=== PATIENT | female | born 1955 | race Caucasian/White ===

== ENCOUNTER 2017-10-08 16:19 | Emergency (ER) | payer OTHER ==
[~2017-10-08] VITALS: Ht 165.1 cm; Wt 63.0 kg
[~2017-10-08 16:19] MED LIST: ADVIL200 MG PO; ALEVE220 MG PO; AMBIEN 10MG10 MG PO; AMBIEN10 M1 PO; AMRIX15 MG PO; ASPIRIN EC81 M1 PO; ATIVAN 2 MG. TAB2 MG PO; ATIVAN0.5 MG PO; ATIVAN1 MG PO; ATIVAN2 MG PO; ATORVASTATIN CA20 M1 PO; ATORVASTATIN CA20 MG PO; BENZTROPINE MESY1 M1 PO; BUSPAR5 MG PO; CALCIUM 500 +1 EAC5 PO; CALTRATE 600+D1 TAB PO; CAMBIA50 MG PO; CENTRUM SILVER1 TA1 PO; CENTRUM1 TAB PO; CIPRO500 M1 PO; CYCLOBENZAPRINE10 M1 PO; DESIPRAMINE HCL25 MG PO; DEXAMETHASONE4 MG; DIVALPROEX SOD500 MG PO; ESOMEPRAZOLE MA40 MG PO; FAMOTIDINE40 M1 PO; FIORICET 325 MG1 TAB PO; FLEXERIL10 MG PO; GABAPENTIN600 M1 PO; GEODON 40MG CAP40 MG PO; GEODON20 MG PO; GRALISE600 M1 PO; HALDOL 5MG TABLE5 MG; HALOPERIDOL10 M1 PO; HALOPERIDOL5 MG PO; HYDROXYZINE PAM50 M1 PO; HYDROXYZINE PAM50 MG PO; IBU600 MG PO; IMITREX50 MG PO; LEVOTHYROXIN0.025 M1 PO; LEVOTHYROXINE25 MCG PO; LEVOTHYROXINE50 MCG PO; LOPERAMIDE HCL2 MG PO; LOPERAMIDE2 MG PO; LORAZEPAM2 M1 PO; LORZONE750 MG PO; MOVANTIK12.5 M1; MULTI-DAY VITA1 EACH PO; NADOLOL20 MG; NEURONTIN800 M1 PO; PEPTO-BISMOL262 MG PO; PERCOCET 5-3251 EACH PO; PERCOCET 7.5-31 EACH PO; PREDNISONE10 MG PO; PROCHLORPERAZINE5 MG PO; PROPRANOLOL HCL60 MG PO; QUETIAPINE FUM200 MG PO; QUETIAPINE FUM300 MG PO; RANITIDINE HCL150 MG PO; REGLAN10 MG PO; SEROQUEL400 MG PO; TRAMADOL50 MG PO; TREXIMET 500 MG1 TAB PO; ULTRAM(MONOGRAP50 MG PO; VICODIN 300 MG-1 TAB PO; VICODIN5-300 PO; VISTARIL50 MG PO; ZOLPIDEM TARTRA10 M1 PO; ZORVOLEX35 MG PO
[2017-10-08 16:45] LABS: ABSOLUTE BASOPHIL COUNT 0 /CUMM (0.0-0.2); ABSOLUTE EOSINOPHIL COUNT 0.1 /CUMM (0.0-0.7); ABSOLUTE GRANULOCYTE CT 8.5 /CUMM (1.4-6.5); ABSOLUTE LYMPH COUNT 2.7 /CUMM (1.2-3.4); ABSOLUTE MONOCYTE COUNT 0.5 /CUMM (0.10-0.60); BASOPHIL % 0 % (0.0-2.0); EOSINOPHIL % 0.7 % (0-5); GRANULOCYTE % 72.1 % (42.2-75.2); HEMATOCRIT 43.8 % (37-47); MEAN CORPUSCULAR HGB CONC 32.6 G/DL (33.0-37.0); MEAN CORPUSCULAR VOLUME 89.1 FL (81.0-99.0); MEAN PLATELET VOLUME 8.4 FL (7.4-10.4); PLATELET COUNT 436 /CUMM (130-400); RBC DISTRIBUTION WIDTH 13.9 % (11.5-14.5); RED BLOOD CELL CT 4.92 /CUMM (4.20-5.40); WHITE BLOOD CELL COUNT 11.7 /CUMM (4.8-10.8)
--- NOTE | 2017-10-08 19:01 | ED GENERAL ADULT ---
History of Present Illness General Chief Complaint: Chest Pain Stated Complaint: I HAVE GERD AND CP X 8 DAYS Source: patient, family, old records Exam Limitations: no limitations Vital Signs & Intake/Output Vital Signs & Intake/Output Vital Signs Date Time Temp Pulse Resp B/P B/P Pulse O2 O2 Flow FiO2 Mean Ox Delivery Rate 10/08 2125 98.0 78 20 128/78 98 Room Air 10/08 1935 98 Room Air 10/08 1934 97.6 81 20 160/77 98 Room Air 10/08 1637 99.5 94 18 114/74 97 Room Air Room Air Allergies Coded Allergies: Influenza Virus Vaccines (SICK, FEVER, FLU SYMPTOMS 03/15/17) Iodinated Contrast- Oral and IV Dye (IODINATED CONTRAST MEDIA - IV DYE) (UNKNOWN 03/15/17) latex (HIVES 03/15/17) metronidazole (UNKNOWN 03/15/17) penicillin V (UNKNOWN 03/15/17) pneumococcal vaccine (UNKNOWN 03/15/17) pollen extracts (UNKNOWN 03/15/17) ragweed pollen (UNKNOWN 03/15/17) risperidone (From RISPERDAL) (UNKNOWN 03/15/17) venom-honey bee (BEE VENOM (HONEY BEE)) (UNKNOWN 03/15/17) Reconcile Medications Aspirin (Ecotrin*) 81 MG TABLET.DR 1 TAB PO DAILY HEART/BLOOD (Reported) Atorvastatin Calcium 20 MG TABLET 1 TAB PO DAILY CHOLESTEROL (Reported) Benztropine Mesylate 1 MG TABLET 1 TAB PO BID MENTAL HEALTH (Reported) Calcium Carbonate/Vitamin D3 (Calcium 500 + D Tablet) (Unknown Strength) TABLET (Unknown Dose) PO DAILY SUPPLEMENT (Reported) Cyclobenzaprine HCl 10 MG TABLET 1 TAB PO BID MUSCLE RELAXER (Reported) Haloperidol 5 MG TABLET 1 TAB PO QAM MENTAL HEALTH (Reported) Haloperidol 10 MG TABLET 1 TAB PO QPM MENTAL HEALTH (Reported) Hydroxyzine Pamoate 50 MG CAPSULE 1 CAP PO DAILY ANXIETY (Reported) Levothyroxine Sodium 25 MCG TABLET 1 TAB PO DAILY THYROID (Reported) Lorazepam 2 MG TABLET 1 TAB PO DAILY PRN ANXIETY (Reported) Multivitamin (Multi-Day Vitamins) 1 EACH TABLET 1 TAB PO DAILY SUPPLEMENT ( Reported) Naloxegol Oxalate (Movantik) (Unknown Strength) TABLET (Unknown Dose) UNKNOWN (Reported) Oxycodone HCl/Acetaminophen (Percocet 7.5-325 MG Tablet) 7.5 MG-325 MG TABLET 1 TAB PO BID PRN PAIN (Reported) Ranitidine (Ranitidine HCl) 150 MG TABLET 1 TAB PO BID GI (Reported) Zolpidem Tartrate 10 MG TABLET 1 TAB PO QPM SLEEP (Reported) Triage Note: TRIAGE: 61 Y/O FEMALE PRESENTS C/O 05/23 INTERMITTENT CHEST PAIN X 8 DAYS. HISTORY OF GERD. EKG IN PROGRESS. Triage Nurses Notes Reviewed? yes Onset: Gradual Duration: day(s): (8) Timing: recent history Injury Environment: home Severity: moderate Severity Numbers: 6 No Modifying Factors: none Associated Symptoms: chest pain HPI: Patient is a 61-year-old female presenting to the emergency department complaining of centralized chest pain off and on for the past 8 days. Nothing seems to make it better. Denies any associated shortness of breath nausea vomiting fevers or chills. No palpitations. She has been taking her daily pain medications without relief. She does report that pressing on her chest seems to get worse. Denies any recent coughing or congestion. No abdominal pain. She has an appointment with her sales project coordinator next week. Denies any lower extremities swelling. No hemoptysis. (Jessica Walsh) Past History Travel History Traveled to [place] past 21 day No Medical History Any Pertinent Medical History? 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 No (Jessica Walsh) Review of Systems Review of Systems Constitutional: Reports: no symptoms. Comments Review of systems: See HPI, All other systems negative. Constitutional, no chills fever or weight loss HEENT: No visual changes no sore throat no congestion Cardiovascular: No palpitation , orthopnea or ankle swelling Skin, no jaundice no rashes Respiratory: No dyspnea cough sputum or hemoptysis GI: No nausea no vomiting Muscle skeletal: no back pain, no neck pain, Neurologic: No numbness no confusion Psych: No stress anxiety or depression,. Heme/endocrine: No bruising no bleeding no polyuria or polydipsia Immunology: No splenectomy or history of AIDS (Jessica Walsh) Physical Exam Physical Exam General Appearance: well developed/nourished, no apparent distress, alert, awake , comfortable Comments: Well-developed well-nourished person in no acute distress HEENT: Pupils equally round and reactive to light and accommodation. Nose is atraumatic. External auditory canal and Tympanic membranes clear. Pharynx normal. No swelling or edema. Neck: Normal inspection Back: Nontender, no CVA tenderness. Full range of motion Cardiovascular: Regular rate and rhythms no murmurs rubs or gallops, normal JVP Respiratory: Chest is mildly tender to palpation over the central aspect chest.. No respiratory distress.breath sounds clear to auscultation bilaterally Abdomen: Soft, nontender nondistended, no appreciable organomegaly. Normal bowel sounds. No ascites, no rebound or guarding. Extremity: No edema, no calf tenderness to palpation, normal and equal pulses. Neuro: Alert oriented x3 Skin: No appreciable rash on exposed skin, skin is warm and dry. Psych: Mood and affect is normal, memory and judgment is normal. Core Measures ACS in differential dx? Yes CVA/TIA Diagnosis: No Sepsis Present: No Sepsis Focused Exam Completed? No (Jessica Walsh) Progress Differential Diagnoses I considered the following diagnoses in my evaluation of the patient: A few coronary syndrome, muscle strain, contusion, pleurisy, atypical chest pain, costochondritis Plan of Care: Orders Procedure Date/time Status TROPONIN LEVEL 10/08 2029 Complete EKG 10/08 2029 Active Telemetry/Fruit Shipper 10/08 191 Active TROPONIN LEVEL 10/08 162 Complete MAGNESIUM 10/08 162 Complete COMPREHENSIVE METABOLIC PANEL 10/08 162 Complete CHOLESTEROL 10/08 162 Complete CBC WITHOUT DIFFERENTIAL 10/08 1625 Complete EKG 10/08 162 Active Laboratory Tests 10/08/172024: Troponin I < 0.01 10/08/17 1636: Anion Gap 14, Estimated GFR > 60, BUN/Creatinine Ratio 11.7, Glucose 164 H, Calcium 9.9, Magnesium 1.9, Total Bilirubin 0.5, AST 26, ALT 40, Alkaline Phosphatase 124, Troponin I < 0.01, Total Protein 7.1, Albumin 4.4, Globulin 2.7 , Albumin/Globulin Ratio 1.6, Cholesterol 143, CBC w Diff NO MAN DIFF REQ, RBC 4.92, MCV 89.1, MCH 29.0, MCHC 32.6 L, RDW 13.9, MPV 8.4, Gran % 72.1, Lymphocytes % 23.3, Monocytes % 3.9, Eosinophils % 0.7, Basophils % 0, Absolute Granulocytes 8.5 H, Absolute Lymphocytes 2.7, Absolute Monocytes 0.5, Absolute Eosinophils 0.1, Absolute Basophils 0 Spoke with patient's sales project coordinator. dr devlin. Pain has been constant for 8 days now. First troponin and EKG are unchanged from previous. Patient had relief with morphine. Recommending we do repeat PG troponin 4 hours from the first. If negative patient will be cleared to be discharged home and follow up outpatient. Patient informed of negative second troponin unchanged EKG. Patient will keep appointment with Dr. Devlin. Patient nontoxic. d/w dr. franco and he agrees with plan. Diagnostic Imaging: Viewed by Me: Radiology Read. Discussed w/RAD: Radiology Read. Radiology Impression: PATIENT: JORGE JIMENEZ PRESENT AGE: 61 PATIENT ACCOUNT NO: [id number] : 53 LOCATION: [facility] ORDERING PHYSICIAN: Jessica PASCUAL SERVICE DATE: 10/08/17 EXAM TYPE: RAD - XRY-CHEST XRAY, TWO VIEWS EXAMINATION: XR CHEST CLINICAL INFORMATION: Chest pain COMPARISON: 09/02/2016 TECHNIQUE: 2 views of the chest were obtained. FINDINGS: The cardiomediastinal contours are stable. The cardiac size is normal. There is moderate biapical pleural parenchymal thickening, unchanged. The lungs are clear without consolidation or effusion. The visualized osseous structures appear intact. IMPRESSION: No acute process. DICTATED BY: Ashlee Parks MD DATE/ TIME DICTATED:10/08/171940 OTR TRUCK DRIVER:MARISELA DATE/TIME TRANSCRIBED: 10/08/171940 CONFIDENTIAL, DO NOT COPY WITHOUT APPROPRIATE AUTHORIZATION. < Electronically signed in Other Vendor System> SIGNED BY: Ashlee Parks MD 1944 Initial ED EKG: NSR Prior EKG: unchanged Repeat EKG: unchanged (Jessica Walsh) Departure Departure Time of Disposition: 2117 Disposition: HOME OR SELF CARE Condition: Stable Clinical Impression Primary Impression: Chest pain Qualifiers: Chest pain type: unspecified Qualified Code: R07.9 - Chest pain, unspecified Referrals: Andrew MENDEZ,Bryn Gonzalez (PCP/Family) Say Devlin MD Additional Instructions: Follow-up with Dr. Devlin as scheduled for next week. Return to the emergency department for any worsening symptoms or concerns. Continue taking all previous prescribed medications as directed. Departure Forms: Customer Survey General Discharge Information (Jessica Walsh) PA/PAINTER AND PAPERHANGER APPRENTICE Co-Sign Statement Statement: ED Attending supervision documentation- [] I saw and evaluated the patient. I have also reviewed all the pertinent lab results and diagnostic results. I agree with the findings and the plan of care as documented in the PA's/PAINTER AND PAPERHANGER APPRENTICE's documentation. [X] I have reviewed the ED Record and agree with the PA's/PAINTER AND PAPERHANGER APPRENTICE's documentation. [] Additions or exceptions (if any) to the PAs/PAINTER AND PAPERHANGER APPRENTICE's note and plan are summarized below: [] (Juan MENDEZ,Jalil Medellin) Critical Care Note Critical Care Note Critical Care Time: non-applicable (Jessica Walsh)
--- NOTE | 2017-10-08 19:45 | RADIOLOGY REPORT ---
EXAMINATION: XR CHEST CLINICAL INFORMATION: Chest pain COMPARISON: 09/02/2016 TECHNIQUE: 2 views of the chest were obtained. FINDINGS: The cardiomediastinal contours are stable. The cardiac size is normal. There is moderate biapical pleural parenchymal thickening, unchanged. The lungs are clear without consolidation or effusion. The visualized osseous structures appear intact. IMPRESSION: No acute process.
[2017-10-08 21:26] VITALS: BP 128/78
== END 2017-10-08 21:27 ==
LOC: ERH 16:19
PROVIDERS: Emergency Medicine
DX: R07.89 Other chest pain (principal)
CPT/HCPCS: 71046; 93005; 93010; 96372

== ENCOUNTER 2018-01-02 20:23 | Emergency (ER) | payer OTHER ==
[~2018-01-02] VITALS: Ht 165.1 cm; Wt 61.2 kg
[2018-01-02 23:06] LABS: ABSOLUTE BASOPHIL COUNT 0.1 /CUMM (0.0-0.2); ABSOLUTE EOSINOPHIL COUNT 0.1 /CUMM (0.0-0.7); ABSOLUTE GRANULOCYTE CT 6.6 /CUMM (1.4-6.5); ABSOLUTE MONOCYTE COUNT 0.8 /CUMM (0.10-0.60); BASOPHIL % 0.5 % (0.0-2.0); EOSINOPHIL % 0.7 % (0-5); GRANULOCYTE % 62.3 % (42.2-75.2); HEMATOCRIT 38.1 % (37-47); MEAN CORPUSCULAR HGB 30.2 PG (27.0-31.0); MEAN CORPUSCULAR HGB CONC 34.1 G/DL (33.0-37.0); MEAN CORPUSCULAR VOLUME 88.4 FL (81.0-99.0); MEAN PLATELET VOLUME 8.1 FL (7.4-10.4); PLATELET COUNT 408 /CUMM (130-400); RBC DISTRIBUTION WIDTH 13.1 % (11.5-14.5); RED BLOOD CELL CT 4.31 /CUMM (4.20-5.40); WHITE BLOOD CELL COUNT 10.6 /CUMM (4.8-10.8)
--- NOTE | 2018-01-02 23:19 | RADIOLOGY REPORT ---
EXAMINATION: CHEST 2 VIEWS CLINICAL INFORMATION: Chest pain. COMPARISON: 10/08/2017. TECHNIQUE: PA and lateral views of the chest were obtained. FINDINGS: The cardiac silhouette is not enlarged. The mediastinal and hilar contours are unremarkable. There are neither pleural effusions nor pneumothoraces. There are no consolidations. The osseous structures are stable. IMPRESSION: No evidence for acute disease.
--- NOTE | 2018-01-03 00:43 | ED CARDIAC/CP/PALPITATIONS ---
History of Present Illness General Chief Complaint: Chest Pain Stated Complaint: CP X 2 DAYS, TAKEN NITRO Source: patient Exam Limitations: no limitations Vital Signs & Intake/Output Vital Signs & Intake/Output Vital Signs Date Time Temp Pulse Resp B/P B/P Pulse O2 O2 Flow FiO2 Mean Ox Delivery Rate 01/03 0331 98.7 68 18 155/84 97 Room Air 01/03 0330 97 Room Air 01/02 2243 98.6 73 20 134/86 98 Room Air 01/02 2030 99.8 73 18 144/79 98 Room Air ED Intake and Output 01/03 0000 01/02 1200 Intake Total Output Total Balance Patient 135 lb Weight Weight Reported by Patient Measurement Method Allergies Coded Allergies: Influenza Virus Vaccines (SICK, FEVER, FLU SYMPTOMS 03/15/17) Iodinated Contrast- Oral and IV Dye (IODINATED CONTRAST MEDIA - IV DYE) (UNKNOWN 03/15/17) latex (HIVES 03/15/17) metronidazole (UNKNOWN 03/15/17) penicillin V (UNKNOWN 03/15/17) pneumococcal vaccine (UNKNOWN 03/15/17) pollen extracts (UNKNOWN 03/15/17) ragweed pollen (UNKNOWN 03/15/17) risperidone (From RISPERDAL) (UNKNOWN 03/15/17) venom-honey bee (BEE VENOM (HONEY BEE)) (UNKNOWN 03/15/17) Reconcile Medications Aspirin (Ecotrin*) 81 MG TABLET.DR 1 TAB PO DAILY HEART/BLOOD (Reported) Atorvastatin Calcium 20 MG TABLET 1 TAB PO DAILY CHOLESTEROL (Reported) Benztropine Mesylate 1 MG TABLET 1 TAB PO BID MENTAL HEALTH (Reported) Calcium Carbonate/Vitamin D3 (Calcium 500 + D Tablet) (Unknown Strength) TABLET (Unknown Dose) PO DAILY SUPPLEMENT (Reported) Cyclobenzaprine HCl 10 MG TABLET 1 TAB PO BID MUSCLE RELAXER (Reported) Haloperidol 5 MG TABLET 1 TAB PO QAM MENTAL HEALTH (Reported) Haloperidol 10 MG TABLET 1 TAB PO QPM MENTAL HEALTH (Reported) Hydroxyzine Pamoate 50 MG CAPSULE 1 CAP PO DAILY ANXIETY (Reported) Levothyroxine Sodium 25 MCG TABLET 1 TAB PO DAILY THYROID (Reported) Lorazepam 2 MG TABLET 1 TAB PO DAILY PRN ANXIETY (Reported) Multivitamin (Multi-Day Vitamins) 1 EACH TABLET 1 TAB PO DAILY SUPPLEMENT ( Reported) Naloxegol Oxalate (Movantik) (Unknown Strength) TABLET (Unknown Dose) UNKNOWN (Reported) Oxycodone HCl/Acetaminophen (Percocet 7.5-325 MG Tablet) 7.5 MG-325 MG TABLET 1 TAB PO BID PRN PAIN (Reported) Ranitidine (Ranitidine HCl) 150 MG TABLET 1 TAB PO BID GI (Reported) Zolpidem Tartrate 10 MG TABLET 1 TAB PO QPM SLEEP (Reported) Triage Note: PRESENTS TO ED FOR EVALUATION OF CHEST PAIN X 24 HRS. SHE TOOK A NITRO TABLET LAST NIGHT WITH NO PAIN RELIEVE. THE PAIN IS CONSTANT, DENIED NAUSE OR VOMITING, NO RADIATION OF THE PAIN. Triage Nurses Notes Reviewed? yes Onset: Abrupt Duration: day(s): (1), intermittent Timing: recent history Location: central Radiation: no radiation Activities at Onset: none HPI: 62-year-old female comes into the emergency room for further evaluation of central chest pain has been going on for the past day. Denies any fever chills vomiting. Denies any associated shortness of breath. Pain is intermittent. Not worse with exertion. Patient has been seen many times for chest pain in the past. Patient is seen by Dr. Babcock. (Elías Liz) Past History Travel History Traveled to [place] past 21 day No Medical History Any Pertinent Medical History? 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 No (Elías Liz) Review of Systems Review of Systems Constitutional: Reports: no symptoms. EENTM: Reports: no symptoms. Respiratory: Reports: no symptoms. Cardiovascular: Reports: see HPI. GI: Reports: no symptoms. Genitourinary: Reports: no symptoms. Musculoskeletal: Reports: no symptoms. Skin: Reports: no symptoms. Neurological/Psychological: Reports: no symptoms. Hematologic/Endocrine: Reports: no symptoms. Immunologic/Allergic: Reports: no symptoms. All Other Systems: Reviewed and Negative (Elías Liz) Physical Exam Physical Exam General Appearance: well developed/nourished, no apparent distress, alert, awake Head: atraumatic Eyes: Bilateral: normal appearance. Ears, Nose, Throat: normal ENT inspection, hearing grossly normal Neck: normal inspection Respiratory: normal breath sounds, no respiratory distress Cardiovascular: regular rate/rhythm Gastrointestinal: soft Back: normal inspection Extremities: normal inspection, no edema Neurologic/Psych: awake, alert, oriented x 3 Skin: intact, normal color Core Measures ACS in differential dx? Yes CVA/TIA Diagnosis No Sepsis Present: No Sepsis Focused Exam Completed? No (Elías Liz) Progress Differential Diagnosis: AMI, cholecystitis, costochondritis, musculoskeletal pain, myocarditis, pancreatitis, pericarditis, pneumonia, pneumothorax, pulmonary embolism, unstable angina Plan of Care: Orders Procedure Date/time Status TROPONIN LEVEL 01/03 200 Complete EKG 01/03 200 Active Add-on Test (ER Only) 01/03 0005 Active D-DIMER 01/02 2300 Complete TROPONIN LEVEL 01/02 2246 Complete COMPREHENSIVE METABOLIC PANEL 01/02 2246 Complete CBC WITHOUT DIFFERENTIAL 01/02 2246 Complete EKG 01/03 2024 Active Laboratory Tests 01/03/18 0155: Troponin I < 0.01 01/02/18 2300: Anion Gap 13, Estimated GFR > 60, BUN/Creatinine Ratio 15.0, Glucose 88, Calcium 9.5, Total Bilirubin 0.4, AST 23, ALT 30, Alkaline Phosphatase 139 H, Troponin I < 0.01, Total Protein 6.9, Albumin 4.4, Globulin 2.5, Albumin/Globulin Ratio 1.8, D-Dimer High Sensitivty < 200, CBC w Diff NO MAN DIFF REQ, RBC 4.31, MCV 88.4, MCH 30.2, MCHC 34.1, RDW 13.1, MPV 8.1, Gran % 62.3, Lymphocytes % 28.6, Monocytes % 7.9, Eosinophils % 0.7, Basophils % 0.5, Absolute Granulocytes 6.6 H, Absolute Lymphocytes 3.0, Absolute Monocytes 0.8 H, Absolute Eosinophils 0.1 , Absolute Basophils 0.1 Diagnostic Imaging: Viewed by Me: Radiology Read. Discussed w/RAD: Radiology Read. Radiology Impression: PATIENT: JORGE JIMENEZ PRESENT AGE: 62 PATIENT ACCOUNT NO: [id number] : 53 LOCATION: [facility] ORDERING PHYSICIAN: Elías PASCUAL SERVICE DATE: 01/02/18 EXAM TYPE: RAD - XRY-CHEST XRAY, TWO VIEWS EXAMINATION: CHEST 2 VIEWS CLINICAL INFORMATION: Chest pain. COMPARISON: 10/08/2017. TECHNIQUE: PA and lateral views of the chest were obtained. FINDINGS: The cardiac silhouette is not enlarged. The mediastinal and hilar contours are unremarkable. There are neither pleural effusions nor pneumothoraces. There are no consolidations. The osseous structures are stable. IMPRESSION: No evidence for acute disease. DICTATED BY: Dandre Engel MD DATE/ TIME DICTATED:01/02/182314 TABLEAU REPORT DEVELOPER:MARISELA DATE/TIME TRANSCRIBED: 01/02/182314 CONFIDENTIAL, DO NOT COPY WITHOUT APPROPRIATE AUTHORIZATION. < Electronically signed in Other Vendor System> SIGNED BY: Dandre Engel MD 01/02/182318 Initial ED EKG: normal sinus rhythm, rate (72), nonspecific ST T wave chg Hand-Off Endorsed To: Meli MENDEZ,Nicholas Gonzalez (Otto PASCUAL,Elías) Departure Departure Disposition: HOME OR SELF CARE Condition: Stable Referrals: Andrew MENDEZ,Bryn Gonzalez (PCP/Family) Additional Instructions: Follow-up with your field administrative assistant Dr. Babcock. Return if any concerns worsening symptoms. Please go over all results of today's visit with your primary care doctor. Contact your primary care doctor to let them know you were here in the emergency room. There may be nonspecific findings which may not be related to your visit today here in the emergency room but may require further evaluation and chronic monitoring by your primary care doctor. If you had a laceration today the chance of foreign body always remains. You should follow-up with your primary care doctor for recheck in 3-5 days for a wound check. If you had an x-ray done there is a chance that a fracture could have been missed on initial read and you should follow-up with your primary care doctor for repeat x-rays if symptoms persist. If your blood pressure was elevated here in the emergency room please have rechecked by [facility] primary care doctor within the next 48. If you were prescribed a narcotic here in the emergency room or any type of controlled substances you're not allowed to drive while taking this medication or operate any type of heavy machinery. Narcotics can make you feel lightheaded dizziness nausea and can cause constipation. You may need to picking table worker a stool softener. Thank you for choosing [facility] emergency room. Please return to the emergency room immediately if you have any other concerns worsening of symptoms. Departure Forms: Customer Survey General Discharge Information (Elías Liz) Departure Clinical Impression Primary Impression: Atypical chest pain Secondary Impressions: Chest wall pain PA/CHURCH WORKER Co-Sign Statement Statement: ED Attending supervision documentation- [x] I saw and evaluated the patient. I have also reviewed all the pertinent lab results and diagnostic results. I agree with the findings and the plan of care as documented in the PA's/CHURCH WORKER's documentation. 01/03/18, 3:40am... pt with reproducible chest wall tenderness to my exam, otherwise benign trop/ekg benign x2. pt safe for discharge with close follow up advised. [] I have reviewed the ED Record and agree with the PA's/CHURCH WORKER's documentation. [] Additions or exceptions (if any) to the PAs/CHURCH WORKER's note and plan are summarized below: [] (Meli MENDEZ,Nicholas Gonzalez) Critical Care Note Critical Care Note Critical Care Time: non-applicable (Meli MENDEZ,Nicholas Gonzalez)
[2018-01-03 03:31] VITALS: BP 155/84
== END 2018-01-03 03:38 ==
LOC: ERH 20:23
PROVIDERS: Physician Assistant Medical
DX: R07.89 Other chest pain (principal)
CPT/HCPCS: 71046; 93005; 93010; 96372; J1885; J3101

== ENCOUNTER 2018-04-16 20:51 | Emergency (ER) | payer OTHER ==
[~2018-04-16] VITALS: Ht 165.1 cm; Wt 61.2 kg
--- NOTE | 2018-04-16 22:37 | ED UPPER/LOWER EXTREMITY COMPL ---
History of Present Illness General Chief Complaint: General Adult Stated Complaint: POST OP PAIN; "NEEDS A PAIN SHOT" Source: patient, old records Exam Limitations: no limitations Vital Signs & Intake/Output Vital Signs & Intake/Output Vital Signs Date Time Temp Pulse Resp B/P B/P Pulse O2 O2 Flow FiO2 Mean Ox Delivery Rate 04/16 2327 84 137/78 04/16 2117 96.8 72 20 149/92 95 Room Air Allergies Coded Allergies: Influenza Virus Vaccines (SICK, FEVER, FLU SYMPTOMS 03/15/17) Iodinated Contrast- Oral and IV Dye (IODINATED CONTRAST MEDIA - IV DYE) (UNKNOWN 03/15/17) latex (HIVES 03/15/17) metronidazole (UNKNOWN 03/15/17) penicillin V (UNKNOWN 03/15/17) pneumococcal vaccine (UNKNOWN 03/15/17) pollen extracts (UNKNOWN 03/15/17) ragweed pollen (UNKNOWN 03/15/17) risperidone (From RISPERDAL) (UNKNOWN 03/15/17) venom-honey bee (BEE VENOM (HONEY BEE)) (UNKNOWN 03/15/17) Reconcile Medications Aspirin (Ecotrin*) 81 MG TABLET.DR 1 TAB PO DAILY HEART/BLOOD (Reported) Atorvastatin Calcium 20 MG TABLET 1 TAB PO DAILY CHOLESTEROL (Reported) Benztropine Mesylate 1 MG TABLET 1 TAB PO BID MENTAL HEALTH (Reported) Calcium Carbonate/Vitamin D3 (Calcium 500 + D Tablet) (Unknown Strength) TABLET (Unknown Dose) PO DAILY SUPPLEMENT (Reported) Cyclobenzaprine HCl 10 MG TABLET 1 TAB PO BID MUSCLE RELAXER (Reported) Haloperidol 5 MG TABLET 1 TAB PO QAM MENTAL HEALTH (Reported) Haloperidol 10 MG TABLET 1 TAB PO QPM MENTAL HEALTH (Reported) Hydroxyzine Pamoate 50 MG CAPSULE 1 CAP PO DAILY ANXIETY (Reported) Levothyroxine Sodium 25 MCG TABLET 1 TAB PO DAILY THYROID (Reported) Lorazepam 2 MG TABLET 1 TAB PO DAILY PRN ANXIETY (Reported) Multivitamin (Multi-Day Vitamins) 1 EACH TABLET 1 TAB PO DAILY SUPPLEMENT ( Reported) Naloxegol Oxalate (Movantik) (Unknown Strength) TABLET (Unknown Dose) UNKNOWN (Reported) Oxycodone HCl/Acetaminophen (Percocet 7.5-325 MG Tablet) 7.5 MG-325 MG TABLET 1 TAB PO BID PRN PAIN (Reported) Ranitidine (Ranitidine HCl) 150 MG TABLET 1 TAB PO BID GI (Reported) Zolpidem Tartrate 10 MG TABLET 1 TAB PO QPM SLEEP (Reported) Triage Note: PT TO ED REQUESTING "PAIN SHOT" FOR RT HIP PAIN. "I HAD COTISONE INJECTIONS ON November AND THE HIP IS REALLY BOTHERING ME" "I CAME HERE FOR A PAIN SHOT BEFORE" "DR ORELLANA SENT ME IN FOR A PAIN SHOT. I HAVE AN APPOINTMENT WITH HIM ON MONDAY" PT AMBULATING Triage Nurses Notes Reviewed? yes Onset: Gradual Duration: week(s): Timing: recent history Severity: severe Severity Numbers: 10 Pain/Injury Location: Right: Hip. HPI: 62-year-old female presents to emergency department complaining of pain in right hip times few weeks. Patient states that she has had surgery with Dr. Orellana in the past and has had cortisone shots in this joint as well. Patient states she saw her doctor recently for an MRI and told them of her increasing pain, she states that he recommended she come here for "pain shot" if pain continued. Patient's that she has been here for "pain shots" in the past. She denies recent injury or trauma. She denies numbness, tingling, bleeding, skin changes. (Cyndee Trujillo) Past History Travel History Traveled to [place] past 21 day No Medical History Any Pertinent Medical History? 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 No (Cyndee Trujillo) Review of Systems Review of Systems Constitutional: Reports: no symptoms. EENTM: Reports: no symptoms. Respiratory: Reports: no symptoms. Cardiovascular: Reports: no symptoms. Gastrointestinal/Abdominal: Reports: no symptoms. Genitourinary: Reports: no symptoms. Musculoskeletal: Reports: see HPI. Skin: Reports: no symptoms. Neurological/Psychological: Reports: no symptoms. Hematologic/Endocrine: Reports: no symptoms. Immunological: Reports: no symptoms. All Other Systems: Reviewed and Negative (Cyndee Trujillo) Physical Exam Physical Exam General Appearance: well developed/nourished, no apparent distress, alert, awake Head: atraumatic, normal appearance Eyes: Bilateral: normal appearance. Ears, Nose, Throat: hearing grossly normal Neck: normal inspection, supple, full range of motion Cardiovascular/Respiratory: normal peripheral pulses, no respiratory distress Peripheral Pulses: 2+ dorsalis pedis (R) Back: normal inspection, normal range of motion Hip Left: normal range of motion, normal inspection Hip Right: normal range of motion, tenderness to palpation Foot Left: normal inspection, normal range of motion Foot Right: normal inspection, normal range of motion Neurologic/Tendon: normal sensation, normal motor functions, normal tendon functions Skin: intact, normal color, warm/dry (Cyndee Trujillo) Progress Differential Diagnosis: contusion, fracture, sprain, chronic pain, arthritis, bursitis Plan of Care: Current Medications Sig/Hudson Start time Last Medication Dose Stop Time Status Admin Ketorolac 30 MG ONCE ONE 04/16 2245 UNVr 04/16 Tromethamine 04/160 (Toradol) Old records reviewed. Patient has received IM Toradol shots in the past and has had relief of her symptoms. I medicated patient with Toradol and she reports improvement in pain, she is requesting to be discharged at this time. SHe is ambulatory here in the emergency department, neurovascularly intact. She agrees with the plan of care. (Cyndee Trujillo) Departure Departure Disposition: HOME OR SELF CARE Condition: Stable Clinical Impression Primary Impression: Hip pain Qualifiers: Laterality: right Qualified Code: M25.551 - Pain in right hip Referrals: Andrew MENDEZ,Bryn Gonzalez (PCP/Family) Additional Instructions: Follow-up with your orthopedic doctor. Continue taking the pain medication you have at home. Return if worsening symptoms or concerns. Please note that there might be incidental findings in your evaluation that are unrelated to the current emergency department visit. Please notify your primary care doctor about this emergency department visit in order to obtain and review all of the testing performed so that these incidental findings can be monitored as needed. If you had an x-ray performed, please understand that some fractures may not be seen on the initial set of x-rays. If your symptoms persist you might need a repeat set of x-rays to check for such a fracture. If you had a laceration evaluated, please understand that foreign bodies such as glass or wood may not be visible to the naked eye or on plain x-rays. If the wound becomes red, swollen, increasingly more painful or if there is any drainage from the wound, please have it reevaluated by a physician for the possibility of a retained foreign body. If you're unable to follow up as outlined in the discharge instructions please return to the emergency department. Thank you for choosing the [facility] Emergency Department for your care. It was a pleasure to serve you today. Departure Forms: Customer Survey General Discharge Information (Robyn PASCUAL,Cyndee Hogan) PA/CARPORT ERECTOR Co-Sign Statement Statement: ED Attending supervision documentation- I saw and evaluated the patient. I have also reviewed all the pertinent lab results and diagnostic results. I agree with the findings and the plan of care as documented in the PA's/CARPORT ERECTOR's documentation. x I have reviewed the ED Record and agree with the PA's/CARPORT ERECTOR's documentation. [] Additions or exceptions (if any) to the PAs/CARPORT ERECTOR's note and plan are summarized below: [] (Jenny MENDEZ,Al)
[2018-04-16 23:27] VITALS: BP 137/78
== END 2018-04-16 23:28 ==
LOC: ERH 20:51
DX: M25.551 Pain in right hip (principal)
CPT/HCPCS: 96372; J1885